=== PATIENT | female | born 1965 | race Caucasian/White ===

== ENCOUNTER → 2016-10-18 | Outpatient (CLI) | payer BC | LOC: MC.RAD 11:00 | DX: Z12.31 Encounter for screening mammogram for malignant neoplasm of breast (principal) ==

== ENCOUNTER 2018-10-09 15:14 | Emergency (ER) | payer BC ==
[~2018-10-09] VITALS: Ht 167.6 cm; Wt 52.3 kg
[2018-10-09 17:45] VITALS: BP 124/61; PULSE 67; TEMP 97.5
== END 2018-10-09 17:45 | disposition home or self-care (01) ==
LOC: COL.ER 15:14
DX: R51 Headache (principal); Z86.69 Personal history of other diseases of the nervous system and sense organs
CPT/HCPCS: J1200; J1885; J2270; J2550; J2765; J7030

== ENCOUNTER → 2018-11-27 | Outpatient (CLI) | payer BC | LOC: MC.RAD 08-16 17:00 | DX: Z12.31 Encounter for screening mammogram for malignant neoplasm of breast (principal) ==

== ENCOUNTER 2020-05-18 19:30 | Emergency (ER) | payer BC ==
[~2020-05-18] VITALS: Ht 170.2 cm; Wt 50.9 kg
[2020-05-18 19:39] VITALS: TEMP 97.8
[2020-05-18 20:05] LABS: BASO # 0.1 (0.0-0.2); BASO % 1.8 % (0.0-2.0); EOS # 0.1 (0.0-0.7); GRAN # 1.8 (1.4-6.5); GRAN % 45.3 % (42.2-75.2); HEMOGLOBIN 12.3 g/dl (12.5-16.0); LYMPH # 1.5 (1.2-3.4); LYMPH % 37.3 % (20.0-51.0); MEAN CELL VOLUME 96 fl (80.0-100.0); MEAN CORPUSCULAR HEMOGLOBIN 32 pg (27.0-31.0); MEAN CORPUSCULAR HGB CONC 34 g/dl (33.0-37.0); MEAN PLATELET VOLUME 11.2 fl (7.4-10.4); MONO # 0.5 (0.1-0.6); MONO % 13.3 % (1.7-9.3); PLATELET COUNT 249 K/mm3 (130-400); REDCELL DISTRIBUTION WIDTH-CV 13.3 % (11.5-14.5)
[2020-05-18 20:09] LABS: HEMATOCRIT 36.6 % (37.0-47.0)
[2020-05-18 20:21] LABS: ALANINE AMINOTRANSFERASE 16 U/L (4-34); ALBUMIN 4.9 gm/dL (3.5-5.0); ALKALINE PHOSPHATASE 62 U/L (50-136); ANION GAP 10 mmol/L (7-16); AST,SGOT 34 U/L (15-37); BILIRUBIN,TOTAL 0.6 mg/dL (0.0-1.0); BLOOD UREA NITROGEN 11 mg/dL (7-17); CALCIUM 9.7 mg/dL (8.4-10.2); CARBON DIOXIDE 28 mmol/L (22-30); CHLORIDE 101 mmol/L (98-107); CREATININE, serum 0.73 (0.52-1.25); GLUCOSE 93 mg/dL (74-106); LIPASE 66 U/L (23-300); POTASSIUM 3.5 mmol/L (3.4-5.0); SODIUM 140 mmol/L (137-145); TOTAL PROTEIN 7.9 gm/dL (6.4-8.2)
[2020-05-18 20:46] LABS: C-REACTIVE PROTEIN < 0.5 mg/dL (0.0-0.9)
[2020-05-18 20:53] LABS: COLLECTION METHOD CLEAN CATCH
[2020-05-18 21:01] LABS: MUCOUS Present /lpf; PH 6 (5-8); SQUAMOUS EPITHELIAL 0-2 /hpf; URINE APPEARANCE Clear; URINE BACTERIA None Seen /hpf; URINE BILIRUBIN Negative (NEGATIVE); URINE BLOOD Negative (NEGATIVE); URINE COLOR Yellow; URINE GLUCOSE Negative (NEGATIVE); URINE KETONE Negative (NEGATIVE); URINE LEUKOCYTE ESTERASE Negative (NEGATIVE); URINE NITRATE Negative (NEGATIVE); URINE PROTEIN(semi-quant) Negative (NEGATIVE); URINE RBC 0-2 /hpf; URINE UROBILINOGEN Negative (NEGATIVE)
[2020-05-18 22:20] VITALS: BP 108/69; PULSE 61
== END 2020-05-18 22:30 | disposition home or self-care (01) ==
LOC: COL.ER 19:30
PROVIDERS: Emergency Medicine
DX: R10.31 Right lower quadrant pain (principal)
CPT/HCPCS: J1170; J1790; J2405; J7030; Q9967

== ENCOUNTER → 2021-06-10 | Outpatient (CLI) | payer BC | LOC: MC.RAD 09:00 | DX: N64.89 Other specified disorders of breast (principal) ==